=== PATIENT | female | born 1985 | race American Indian/Alaskan Native ===

== ENCOUNTER 2018-10-24 22:16 | Emergency (ER) | payer MEDICAID ==
[2018-10-24 22:26] VITALS: BP 111/53
--- NOTE | 2018-10-25 00:31 | Emergency Department Report ---
ED ENT HPI - General Chief complaint: Dental/Oral Stated complaint: TOOTHACHE Time Seen by Provider: 10/24/18 23:59 Source: patient Mode of arrival: Ambulatory Limitations: No Limitations - History of Present Illness Initial comments: Patient is a 33-year-old female who presents to emergency room with complaints of right lower dental pain that began bothering her again today. she states she saw the dentist about a month ago and the tooth needs to be pulled. she states she cracked her tooth a few months ago. She has seen a small amount of swelling in the region where the tooth is hurting. She denies any fever, nausea, vomiting, difficulty swallowing, difficulty tolerating secretions. She denies any past medical history. States she has an allergy to penicillin. Patient states her last menstrual cycle was September 27. she denies any possibility of . - Related Data Home Medications Medication Instructions Recorded Confirmed Last Taken Aspirin [Aspir-Low] 81 mg PO DAILY 05/30/18 05/30/18 05/28/18 Ferrous Sulfate [Iron] 325 mg PO DAILY 05/30/18 05/30/18 05/28/18 Vit,Calc76/Iron/Folic 1 tab PO DAILY 05/30/18 05/30/18 05/29/18 [Pnv 29-1 Tablet] Previous Rx's Medication Instructions Recorded Last Taken Type Ferrous Sulfate [Feosol 325 MG tab] 325 mg PO BID #60 tablet 05/31/18 Unknown Rx Acetaminophen/Codeine [Tylenol 1 tab PO Q6H PRN #7 tab 10/25/18 Unknown Rx /Codeine # 3 tab] Clindamycin [Clindamycin CAP] 450 mg PO TID 7 Days #63 capsule 10/25/18 Unknown Rx Ibuprofen [Motrin 800 MG tab] 800 mg PO Q8HR PRN #14 tablet 10/25/18 Unknown Rx Allergies Allergy/AdvReac Type Severity Reaction Status Date / Time Penicillins Allergy Unknown Verified 05/30/18 12:24 ED Dental HPI - General Chief complaint: Dental/Oral Stated complaint: TOOTHACHE Time Seen by Provider: 10/24/18 23:59 Source: patient Mode of arrival: Ambulatory Limitations: No Limitations - Related Data Home Medications Medication Instructions Recorded Confirmed Last Taken Aspirin [Aspir-Low] 81 mg PO DAILY 05/30/18 05/30/18 05/28/18 Ferrous Sulfate [Iron] 325 mg PO DAILY 05/30/18 05/30/18 05/28/18 Vit,Calc76/Iron/Folic 1 tab PO DAILY 05/30/18 05/30/18 05/29/18 [Pnv 29-1 Tablet] Previous Rx's Medication Instructions Recorded Last Taken Type Ferrous Sulfate [Feosol 325 MG tab] 325 mg PO BID #60 tablet 05/31/18 Unknown Rx Acetaminophen/Codeine [Tylenol 1 tab PO Q6H PRN #7 tab 10/25/18 Unknown Rx /Codeine # 3 tab] Clindamycin [Clindamycin CAP] 450 mg PO TID 7 Days #63 capsule 10/25/18 Unknown Rx Ibuprofen [Motrin 800 MG tab] 800 mg PO Q8HR PRN #14 tablet 10/25/18 Unknown Rx Allergies Allergy/AdvReac Type Severity Reaction Status Date / Time Penicillins Allergy Unknown Verified 05/30/18 12:24 ED Review of Systems ROS: Stated complaint: TOOTHACHE Other details as noted in HPI Comment: All other systems reviewed and negative ED Past Medical Hx - Past Medical History Previous Medical History?: Yes Hx Hypertension: Yes (1st ) Hx Diabetes: No Hx Deep Vein Thrombosis: No Hx Renal Disease: No Hx Sickle Cell Disease: No Hx Seizures: No Hx Asthma: No Hx COPD: No Hx HIV: No - Surgical History Past Surgical History?: No - Social History Smoking Status: Never Smoker - Medications Home Medications: Home Medications Medication Instructions Recorded Confirmed Last Taken Type Aspirin [Aspir-Low] 81 mg PO DAILY 05/30/18 05/30/18 05/28/18 History Ferrous Sulfate [Iron] 325 mg PO DAILY 05/30/18 05/30/18 05/28/18 History Vit,Calc76/Iron/Folic 1 tab PO DAILY 05/30/18 05/30/18 05/29/18 History [Pnv 29-1 Tablet] Ferrous Sulfate [Feosol 325 MG tab] 325 mg PO BID #60 tablet 05/31/18 Unknown Rx Acetaminophen/Codeine [Tylenol 1 tab PO Q6H PRN #7 tab 10/25/18 Unknown Rx /Codeine # 3 tab] Clindamycin [Clindamycin CAP] 450 mg PO TID 7 Days #63 capsule 10/25/18 Unknown Rx Ibuprofen [Motrin 800 MG tab] 800 mg PO Q8HR PRN #14 tablet 10/25/18 Unknown Rx ED Physical Exam - General Limitations: No Limitations General appearance: alert, in no apparent distress - Head Head exam: Present: atraumatic, normocephalic - Eye Eye exam: Present: normal appearance - ENT ENT exam: Present: normal orophraynx, mucous membranes moist, other (no uvular edema, uvula is midline, right lower molar is cracked with partial reminents left, there is edema present to the gum line on the right side to the right of the cracked tooth, no necrosis) ED Course Vital Signs 10/24/18 10/24/18 10/25/18 22:20 22:23 00:50 Temperature 98.7 F 98.7 F Pulse Rate 78 78 73 Respiratory 18 18 16 Rate Blood Pressure 111/55 111/53 O2 Sat by Pulse 99 99 97 Oximetry ED Medical Decision Making - Medical Decision Making Patient is a 33-year-old female who presents to emergency room with complaints of right lower dental pain that began bothering her again today. she states she saw the dentist about a month ago and the tooth needs to be pulled. she states she cracked her tooth a few months ago. She has seen a small amount of swelling in the region where the tooth is hurting. She denies any fever, nausea, vomiting, difficulty swallowing, difficulty tolerating secretions. She denies any past medical history. States she has an allergy to penicillin. Patient states her last menstrual cycle was September 27. she denies any possibility of . vitals are normal. on exam: no uvular edema, uvula is midline, right lower molar is cracked with partial reminents left, there is edema present to the gum line on the right side to the right of the cracked tooth, no necrosis. appears to have dental abscess. pt will be given abx, pain medication and anti- inflammatory. Advised to take medication as prescribed completion. Do not drive or operate any machinery while taking pain medication. Follow up with a dentist in the next 2-3 days. It is very important that you follow up with a dentist for permanent solution. Return to the emergency room for any new or worsening symptoms. - Differential Diagnosis dental abscess, dental carries, dental infection, cracked tooth Critical care attestation.: If time is entered above; I have spent that time in minutes in the direct care of this critically ill patient, excluding procedure time. ED Disposition Clinical Impression: Cracked tooth, Dental abscess Disposition: TO HOME OR SELFCARE Is pt being admited?: No Does the pt Need Aspirin: No Condition: Stable Instructions: Dental Abscess (ED) Additional Instructions: take medication as prescribed completion. Do not drive or operate any machinery while taking pain medication. Follow up with a dentist in the next 2-3 days. It is very important that you follow up with a dentist for permanent solution. Return to the emergency room for any new or worsening symptoms. Prescriptions: Clindamycin [Clindamycin CAP] 450 mg PO TID 7 Days #63 capsule Ibuprofen [Motrin 800 MG tab] 800 mg PO Q8HR PRN #14 tablet PRN Reason: Pain, Moderate (4-6) Acetaminophen/Codeine [Tylenol /Codeine # 3 tab] 1 tab PO Q6H PRN #7 tab PRN Reason: Pain , Severe (7-10) Referrals: a, dentist [Other] - 2-3 Days Time of Disposition: 00:34 Print Language: BULGARIAN
== END 2018-10-25 00:50 | disposition home or self-care (01) ==
LOC: ED 22:16
DX: K03.81 Cracked tooth (principal); K04.7 Periapical abscess without sinus; I10 Essential (primary) hypertension; Z88.0 Allergy status to penicillin; Z79.82 Long term (current) use of aspirin; Z79.899 Other long term (current) drug therapy
CPT/HCPCS: 99282

== ENCOUNTER 2019-01-03 21:44 | Emergency (ER) | payer OTHER, MEDICAID ==
[2019-01-04 00:29] VITALS: BP 119/64
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
== END 2019-01-04 03:00 | disposition home or self-care (01) ==
LOC: ED 21:44
DX: S39.012A Strain of muscle, fascia and tendon of lower back, initial encounter (principal); I10 Essential (primary) hypertension; Z79.899 Other long term (current) drug therapy; Z88.0 Allergy status to penicillin; V49.49XA Driver injured in collision with other motor vehicles in traffic accident, initial encounter; Y93.89 Activity, other specified; Y92.410 Unspecified street and highway as the place of occurrence of the external cause; Y99.8 Other external cause status